=== PATIENT | female | born 1990 | race Caucasian/White ===

== ENCOUNTER 2020-01-19 17:00 | Emergency (ER) | payer OTHER ==
[~2020-01-19] VITALS: Ht 160 cm; Wt 54.5 kg
[2020-01-19] MEDS ORDERED: NEXPLANON68 MG ID (17:39)
[2020-01-19 18:21] VITALS: BP 116/88
== END 2020-01-19 18:21 | disposition home or self-care (01) ==
LOC: ED 17:00
DX: S91.311A Laceration without foreign body, right foot, initial encounter (principal); W31.2XXA Contact with powered woodworking and forming machines, initial encounter; Y92.009 Unspecified place in unspecified non-institutional (private) residence as the place of occurrence of the external cause

== ENCOUNTER 2021-02-01 09:18 | Emergency (ER) | payer OTHER ==
[~2021-02-01 09:18] MED LIST: NEXPLANON68 MG ID
[2021-02-01 09:24] VITALS: BP 100/73
[2021-02-01 09:59] LABS: BASO # 0.03 (0.02-0.10); EOS # 0.12 (0.04-0.40); EOS % 1.8 % (1.0-5.0); HEMATOCRIT 43.1 % (37.0-47.0); HEMOGLOBIN 14.7 g/dL (12.5-16.0); LYMPH# 1.57 (1.50-4.00); MEAN CELL VOLUME 91 fl (78-100); MEAN CORPUSCULAR HEMOGLOBIN 31 pg (27-31); MEAN CORPUSCULAR HGB CONC 34 g/dL (33-37); MEAN PLATELET VOLUME 8.9 fl (7.4-10.4); MONO # 0.38 (0.20-0.80); NEU # 4.52 (1.40-6.50); PLATELET COUNT 331 K/mm3 (130-400); RED BLOOD COUNT 4.72 M/mm3 (4.10-5.30); RED CELL DISTRIBUTION WIDTH 11.9 % (11.5-14.5); WHITE BLOOD COUNT 6.6 K/mm3 (4.8-10.8)
[2021-02-01 10:17] LABS: ALBUMIN 4.2 g/dL (3.5-5.0); POTASSIUM 4.3 mmol/L (3.5-5.1)
[2021-02-01 10:19] LABS: CALCIUM 9.7 mg/dL (8.3-10.5)
[2021-02-01 10:20] LABS: TOTAL PROTEIN 7.2 g/dL (6.4-8.3)
[2021-02-01] MEDS ORDERED: AUGMENTIN 875-1 EAC1 PO (10:45)
== END 2021-02-01 10:52 | disposition home or self-care (01) ==
LOC: ED 09:18
PROVIDERS: Nurse Practitioner
DX: H65.93 Unspecified nonsuppurative otitis media, bilateral (principal)

== ENCOUNTER 2021-08-06 18:15 | Emergency (ER) | payer OTHER ==
[~2021-08-06] VITALS: Ht 160 cm; Wt 57.7 kg
[~2021-08-06 18:15] MED LIST changes: +AUGMENTIN 875-1 EAC1 PO
[2021-08-06] MEDS ORDERED: PRENATAL VITAM1 EAC1 PO (18:24)
[2021-08-06 19:00] VITALS: BP 105/71
== END 2021-08-06 19:01 | disposition home or self-care (01) ==
LOC: ED 18:15
DX: S01.01XA Laceration without foreign body of scalp, initial encounter (principal); W20.8XXA Other cause of strike by thrown, projected or falling object, initial encounter

== ENCOUNTER 2022-08-04 16:52 | Emergency (ER) | payer OTHER ==
[~2022-08-04 16:52] MED LIST changes: +PRENATAL VITAM1 EAC1 PO
[2022-08-04 17:40] LABS: BASO # 0.04 K/mm3 (0.02-0.10); EOS # 0.29 K/mm3 (0.04-0.40); EOS % 3.4 % (1.0-5.0); HEMATOCRIT 40.2 % (37.0-47.0); LYMPH# 2.95 K/mm3 (1.50-4.00); MEAN CELL VOLUME 92 fl (78-100); MEAN CORPUSCULAR HEMOGLOBIN 32 pg (27-31); MEAN CORPUSCULAR HGB CONC 35 g/dL (33-37); MONO # 0.44 K/mm3 (0.20-0.80); NEU # 4.82 K/mm3 (1.40-6.50); PLATELET COUNT 318 K/mm3 (130-400); RED BLOOD COUNT 4.36 M/mm3 (4.10-5.30); RED CELL DISTRIBUTION WIDTH 12.2 % (11.5-14.5); WHITE BLOOD COUNT 8.6 K/mm3 (4.8-10.8)
[2022-08-04 17:55] LABS: ALBUMIN 4.4 g/dL (3.5-5.0); POTASSIUM 3.6 mmol/L (3.5-5.1)
[2022-08-04 17:56] LABS: CALCIUM 9.1 mg/dL (8.3-10.5)
[2022-08-04 17:57] LABS: TOTAL PROTEIN 6.6 g/dL (6.4-8.3)
[2022-08-04 17:59] LABS: TOTAL BILIRUBIN 0.4 mg/dL (0.2-1.2)
[2022-08-04 18:03] LABS: URINE WBC 0 /hpf (0-3)
[2022-08-04 18:22] LABS: URINE APPEARANCE HAZY; URINE COLOR YELLOW; URINE GLUCOSE NEGATIVE (NEGATIVE); URINE PROTEIN(semi-quant) TRACE (NEGATIVE)
[2022-08-04 18:23] LABS: URINE BILIRUBIN NEGATIVE (NEGATIVE); URINE BLOOD 50 ery/uL (NEGATIVE); URINE KETONE TRACE (NEGATIVE); URINE LEUKOCYTE ESTERASE NEGATIVE (NEGATIVE); URINE NITRATE NEGATIVE (NEGATIVE); URINE UROBILINOGEN NORMAL (NORMAL)
[2022-08-04 19:02] VITALS: BP 110/69
== END 2022-08-04 20:00 | disposition home or self-care (01) ==
LOC: ED 16:52
PROVIDERS: Family Medicine
DX: R10.31 Right lower quadrant pain (principal); R11.0 Nausea; Z87.442 Personal history of urinary calculi
CPT/HCPCS: J7030; Q9967

== ENCOUNTER 2023-06-09 17:22 | Emergency (ER) | payer OTHER ==
[~2023-06-09] VITALS: Ht 160 cm; Wt 71.0 kg
[2023-06-09] MEDS ORDERED: IBU800 M1 PO (17:42)
[2023-06-09] MEDS ORDERED: LEXAPRO 10MG10 MG PO (17:42)
[2023-06-09 18:23] LABS: BASO # 0.02 K/mm3 (0.02-0.10); EOS # 0.22 K/mm3 (0.04-0.40); EOS % 2.4 % (1.0-5.0); HEMATOCRIT 31.4 % (37.0-47.0); HEMOGLOBIN 10.9 g/dL (12.5-16.0); LYMPH# 1.61 K/mm3 (1.50-4.00); MEAN CELL VOLUME 96 fl (78-100); MEAN CORPUSCULAR HEMOGLOBIN 33 pg (27-31); MEAN CORPUSCULAR HGB CONC 35 g/dL (33-37); MEAN PLATELET VOLUME 9.4 fl (7.4-10.4); MONO # 0.46 K/mm3 (0.20-0.80); NEU # 6.71 K/mm3 (1.40-6.50); PLATELET COUNT 233 K/mm3 (130-400); RED BLOOD COUNT 3.26 M/mm3 (4.10-5.30); RED CELL DISTRIBUTION WIDTH 13.6 % (11.5-14.5); WHITE BLOOD COUNT 9.1 K/mm3 (4.8-10.8)
[2023-06-09 18:31] LABS: ALBUMIN 3.2 g/dL (3.5-5.0)
[2023-06-09 18:33] LABS: TOTAL PROTEIN 5.9 g/dL (6.4-8.3)
[2023-06-09 18:35] LABS: TOTAL BILIRUBIN 0.5 mg/dL (0.2-1.2)
[2023-06-09 19:00] LABS: TROPONIN-I 0.056 ng/mL (0.00-0.033)
[2023-06-09 19:48] LABS: D-DIMER 8.11 mg/L FEU (0.15-0.50)
[2023-06-09] MEDS ORDERED: FUROSEMIDE20 MG PO (21:57)
[2023-06-09 22:10] VITALS: BP 156/89
== END 2023-06-09 22:10 | disposition home or self-care (01) ==
LOC: ED 17:22
PROVIDERS: Family Medicine
DX: O99.43 Diseases of the circulatory system complicating the puerperium (principal); I42.9 Cardiomyopathy, unspecified
CPT/HCPCS: Q9967